=== PATIENT | female | born 1985 | race Caucasian/White ===

== ENCOUNTER 2017-11-27 12:21 | Day surgery (SDC) | payer OTHER, MEDICAID, SELFPAY ==
[2017-11-15 12:52] VITALS: BMI 27.8
[2017-11-27] VITALS (8 sets, daily range): BP systolic 115–134; BP diastolic 71–93; PULSE 81–99; RESP 13–18; TEMP 36.2–36.7; O2SAT 98–100; BMI 24.5
--- NOTE | 2017-11-27 | PATH_ITS ---
[facility] Accession Number: [id number] . 01 Material submitted: . PART A: ANTERIOR CERVIX PART B: POSTERIOR CERVIX . 02 Diagnosis: A. 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 No evidence of invasive malignancy. . B. Posterior Cervix, LEEP: Cervical transformation zone with no diagnostic abnoramlity. Negative for squamous intraepithelial lesion or malignancy. MRV/11/30/2017 . 02 Electronically signed: . Simone Abdalla MD, PhD, Pathologist NPI- [id number] . 01 Gross description: . (A) Received in formalin, labeled anterior cervix, is an unoriented piece of cervical tissue (2.3 x 0.7 x 0.3 cm) with pale pink smooth shiny mucosa and a pale rowe, finely granular resection margin. No nodules, masses or lesions are identified. The specimen cannot be oriented and the ectocervical and endocervical margins cannot be determined. Therefore, the resection margin is inked black. Serially sectioned and entirely submitted in cassette A1. (B) Received in formalin, labeled posterior cervix, is an unoriented piece of cervical tissue (1.8 x 0.9 x 0.4 cm) with collazo-white smooth shiny mucosa and a pale rowe, finely granular resection margin. No nodules, masses or lesions are identified. The specimen cannot be oriented and the ectocervical and endocervical margins cannot be determined. Therefore, the resection margin is inked black. Serially sectioned and entirely submitted in cassette B1. ([id number]) /MRV . 02 Pathologist provided ICD-10: D06.0 . 02 CPT . 516050, [id number] Specimen Comment: A duplicate report has been generated due to demographic updates. Performed at: 01 [facility] [address] [place] [address], [place], [place] [id number] MD Bertram Price MD Phone: [phone] Performed at: [address] [facility] [id number] [place], [place] [id number] MD Jude Haskins MD Phone: [phone]
[2017-11-27] MEDS: LACTATED RINGERS 1,000 ML 42 ML IV (13:00)
--- NOTE | 2017-11-27 13:24 | SUR.OPER ---
Lithotomy on padded OR bed, head on pillow, arms secured on padded arm boards at <90 degrees abduction. Legs secured in padded yellow fins stirrups.
[2017-11-27] MEDS: CEFOTETAN 2 GM/50 ML PIGGYBACK IV (13:35)
--- NOTE | 2017-11-27 13:58 | PM.GYNOP.1 ---
Operative Date/Time/Diagnoses Date of procedure: 11/27/17 Pre-op diagnosis: Cervical intraepithelial neoplasia three Post-op diagnosis: same Procedure: Procedures Operation Date: 11/27/17 13:30 Actual Procedures Side Surgeon p LEEP Procedure Mk Alejandro MD Indications: Cervical intraepithelial neoplasia three Surgeon: Mk Alejandro Anesthesia Type: General Operative Notes Closure Type: not applicable Specimen(s): other (Anterior and posterior sections of cervix after LEEP procedure) Blood products transfused: none Procedure in detail: The patient was placed supine upon the operating table and anesthetized. She was then placed in the dorsal lithotomy position and draped and prepared in the usual fashion. A plastic size speculum was set in place and connected appropriately to suction. A medium wire loop was then used and using the cutting current the anterior portion of the cervical lip was removed and sent as a pathologic specimen. There was minimal bleeding. The posterior lip was then sent as well. The edges of the excision were then fulgurated out 5 mm using cautery. At the end of the procedure the wound was entirely dry. Complications: none Post-operative Condition: stable Disposition: PACU Plan for aftercare: Office Dr. Gorman two weeks
[2017-11-27] MEDS: BUPIVACAINE 0.5% W/ EPI (PF) VIAL 30 ML INJ (13:59)
== END 2017-11-27 14:55 | disposition home or self-care (01) ==
PROVIDERS: Family Provider Family Medicine; PCP Family Medicine
PROC: 0UBC7ZZ Excision of Cervix, Via Natural or Artificial Opening (ICD-10-PCS; CPT 57522; principal; 2017-11-27 13:30)
DX: D06.0 Carcinoma in situ of endocervix (principal)
CPT/HCPCS: 57522; 88307; J1100; J1885; J2405; J2704